=== PATIENT | female | born 1980 | race Caucasian/White ===

== ENCOUNTER 2019-05-07 06:11 | Inpatient (IN) | payer BC ==
[~2019-05-07] VITALS: Ht 157.5 cm; Wt 75.0 kg
[2019-05-10 07:35] VITALS: BP 137/88
== END 2019-05-10 14:51 | disposition home or self-care (01) | DRG 807 ==
LOC: LDIP 06:11 → 2NW 05-08 19:47
PROVIDERS: ADMIT Student in an Organized Health Care Education/Training Program; ATTEND Student in an Organized Health Care Education/Training Program
PROC: 10E0XZZ Delivery of Products of Conception, External Approach (ICD-10-PCS; principal; 2019-05-08)
PROC: 3E033VJ Introduction of Other Hormone into Peripheral Vein, Percutaneous Approach (ICD-10-PCS; 2019-05-08)
PROC: 0HQ9XZZ Repair Perineum Skin, External Approach (ICD-10-PCS; 2019-05-08)
DX: O48.0 Post-term pregnancy (principal); Z37.0 Single live birth; O69.81X0 Labor and delivery complicated by cord around neck, without compression, not applicable or unspecified; O76 Abnormality in fetal heart rate and rhythm complicating labor and delivery; O77.0 Labor and delivery complicated by meconium in amniotic fluid; O99.824 Streptococcus B carrier state complicating childbirth; Z3A.40 40 weeks gestation of pregnancy; O32.8XX0 Maternal care for other malpresentation of fetus, not applicable or unspecified; O70.0 First degree perineal laceration during delivery
CPT/HCPCS: 36415; J7121; 80053; 82570; 82803; 84156; 84550; 85025; 86850; 86900; G0378; J2540; J3010; J0360; J2590; J3490; J7120